=== PATIENT | male | born 1990 | race Two or more races ===

== ENCOUNTER 2019-09-21 21:55 | Emergency (ER) | payer SELFPAY ==
[~2019-09-21] VITALS: Ht 180.3 cm; Wt 61.2 kg
--- NOTE | 2019-09-21 22:00 | NUR ---
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 FOUND POST ICTAL. PER PT, HE MIGHT HAVE DISLOCATED HIS SHOULDER. L SHOULDER PAIN 03/25. PT AAOX3, RR EVEN AND UNLABORED ON RA W NAD NOTED. PT CONNECTED TO THE PATHOLOGY TECHNICIAN AND POX
--- NOTE | 2019-09-21 22:17 | NUR ---
EKG AT BEDSIDE
--- NOTE | 2019-09-21 22:19 | NUR ---
BLOOD COLLECTED AND SENT TO LAB
[2019-09-21] MEDS ORDERED: HYDROCODONE/APAP 5/325MG 1 EACH TABLET ONE (22:23)
[2019-09-21] MEDS ORDERED: LEVETIRACETAM (500MG) 500 MG/5 ML VIAL IV ONE (22:24)
[2019-09-21] MEDS ORDERED: IV NS 0.9% 500 ML BAG IV ONE (22:30)
[2019-09-21] MEDS ORDERED: HYDROCODONE/APAP 5/325MG 1 EACH TABLET PO ONE (22:30)
[2019-09-21] MEDS ORDERED: LEVETIRACETAM (500MG) 500 MG in IV NS 0.9% 100 ML IV SCH (22:30)
[2019-09-21 22:44] LABS: BASOPHILS # (AUTO) 0.1 /CMM (0.0-0.2); BASOPHILS % (AUTO) 0.7 % (0.0-2.0); EOSINOPHILS % (AUTO) 0.9 % (0.0-6.0); HEMATOCRIT 44 % (39-51); HEMOGLOBIN 14.2 g/dL (13.5-17.5); LYMPHOCYTES # (AUTO) 3.3 /CMM (0.8-4.8); LYMPHOCYTES % (AUTO) 21.3 % (20.0-44.0); MEAN CORPUSCULAR HGB CONC 33 g/dl (31.0-36.0); MEAN CORPUSCULAR VOLUME 107 fL (80-96); MONOCYTES # (AUTO) 0.9 /CMM (0.1-1.30); MONOCYTES % (AUTO) 5.6 % (2.0-12.0); NEUTROPHILS # (AUTO) 10.9 /CMM (1.8-8.9); NEUTROPHILS % (AUTO) 71.5 % (43.0-81.0); PLATELET COUNT (AUTO) 379 /CMM (150-450); RED BLOOD CELL COUNT(AUTO) 4.07 MIL/uL (4.5-6.0); WHITE BLOOD COUNT (AUTO) 15.3 K/uL (4.3-11.0)
--- NOTE | 2019-09-21 22:44 | NUR ---
PT REFUSING EKG. PT UNCOOPERATIVE
--- NOTE | 2019-09-21 22:47 | NUR ---
EKG AT BEDSIDE
[2019-09-21 22:54] LABS: ALANINE AMINOTRANSFERASE 77 U/L (12-78); ALBUMIN 4.4 g/dL (3.4-5.0); ALCOHOL, BLOOD < 3 mg/dL (0-0); ALKALINE PHOSPHATASE 105 U/L (46-116); ASPARTATE AMINOTRANSFERASE 25 U/L (15-37); BILIRUBIN,DIRECT 0.1 mg/dL (0.0-0.2); BILIRUBIN,TOTAL 0.6 mg/dL (0.2-1.0); CALCIUM, SERUM 9.1 mg/dL (8.5-10.1); CARBON DIOXIDE 21 mmol/L (21-32); CHLORIDE 100 mmol/L (98-107); CREATININE 1.2 mg/dL (0.6-1.3); GLUCOSE 129 mg/dL (74-106); POTASSIUM 3.5 mmol/L (3.5-5.1); SODIUM SERUM 137 mmol/L (136-145); TOTAL PROTEIN, SERUM 7.5 g/dL (6.4-8.2); UREA NITROGEN, BLOOD 7 mg/dL (7-18)
--- NOTE | 2019-09-21 23:02 | NUR ---
XRAY AT BEDSIDE
[2019-09-21 23:18] LABS: LYMPHOCYTES % (MANUAL) 20 % (16-48); MONOCYTES % (MANUAL) 3 % (0-11.0)
[2019-09-21 23:19] LABS: NEUTROPHILS % (MANUAL) 77 (42-76)
--- NOTE | 2019-09-22 00:04 | NUR ---
PT REFUSED CT
--- NOTE | 2019-09-22 00:34 | NUR ---
Patient discharged to home in stable condition. Written and verbal after care instructions given. Patient verbalizes understanding of instruction.IV removed. Catheter intact and site benign. Pressure and 4x4 applied to site. No bleeding noted.
[2019-09-22 00:35] VITALS: BP 130/68
== END 2019-09-22 00:35 | disposition home or self-care (01) ==
LOC: ER 21:57
DX: S42.252A Displaced fracture of greater tuberosity of left humerus, initial encounter for closed fracture (principal); G40.909 Epilepsy, unspecified, not intractable, without status epilepticus; R94.31 Abnormal electrocardiogram [ECG] [EKG]; W18.39XA Other fall on same level, initial encounter; Y93.89 Activity, other specified; Y92.89 Other specified places as the place of occurrence of the external cause; Y99.8 Other external cause status
CPT/HCPCS: 36415; 71045; 73030; 80048; 80076; 80307; 84484; 85025; 93005; 96365; 99285; J1953; J7040; G0480; J7030